=== PATIENT | female | born 1945 | race Caucasian/White ===

== ENCOUNTER 2017-09-06 15:45 | Inpatient (IN) ==
[2017-09-06] MEDS ORDERED: dilTIAZem HCl 100 MG in D5% in Water 50 ML IVC SCH (16:15)
[2017-09-06] MEDS ORDERED: Aspirin 81 MG TAB.CHEW PO ONE (16:18)
--- NOTE | 2017-09-06 16:19 | Emergency Department Note ---
Disposition Clinical Impression: Palpitation Chest pain Qualifiers: Chest pain type: unspecified Qualified Code(s): R07.9 - Chest pain, unspecified Atrial fibrillation Qualifiers: Atrial fibrillation type: paroxysmal Qualified Code(s): I48.0 - Paroxysmal atrial fibrillation Disposition: Admitted As Inpatient Condition: Fair Time of Disposition: 18:11 General Adult HPI - General Chief complaint: ED Chest Pain Stated complaint: Chest Pain Time Seen by Provider: 09/06/17 15:49 Source: patient Limitations: no limitations Nursing Notes Reviewed: Yes Vital Signs Reviewed: Yes - History of Present Illness HPI Narrative: Patient is a 72-year-old female with a past medical history of cardiac stents, atrial fibrillation, and CHF presenting with the complaint of chest pressure that has been going on for 16 hours. Patient describes the pain as going across her entire anterior chest this morning a discomfort than it is a pain. She states the pain has been constant since that time. She states she does not note anything that makes it better or worse. Her associated symptoms include nausea, diaphoresis, and palpitations. She states she does have palpitations occasionally from her atrial fibrillation, however these palpitations feel different than those. She also has associated nausea and diaphoresis. Patient scrubbed the pain is pressure-like, constant, she has no significant makes pain better or worse, and she states it is not pain is more of a discomfort. Pain Scale: 0 - Related Data Home Medications Medication Instructions Recorded Confirmed Carvedilol 07/21/15 07/21/15 Lisinopril 07/21/15 07/21/15 Multaq 07/21/15 07/21/15 Warfarin 07/21/15 07/21/15 Spironolactone 10/13/16 Atorvastatin 05/02/17 Carvedilol 05/02/17 05/02/17 Previous Rx's Medication Instructions Recorded Nitrofurantoin Monohyd/M-Cryst 100 mg PO BID #14 capsule 05/02/17 [Macrobid 100 mg Capsule] Phenazopyridine HCl [Pyridium] 200 mg PO TID #6 tab 05/02/17 Betamethasone Dipropionate 15 gm TP BID 7 Days #1 cream..g. 08/21/17 GuaiFENesin ER [Mucinex] 1,200 mg PO BID #20 tbbp.12hr 08/21/17 Loratadine/Pseudophed (12 HR) 1 each PO BID #20 tab.er.12h 08/21/17 [Claritin D (12HR)] cephALEXin [Keflex] 500 mg PO QID #40 capsule 08/21/17 Allergies Allergy/AdvReac Type Severity Reaction Status Date / Time No Known Allergies Allergy Verified 07/21/15 13:59 Review of Systems: Constitutional: No fever Vision: No blurred vision ENT: No rhinorrhea Respiratory: No cough, no shortness of breath Allergic: No allergies : No blood in urine GI: No blood in stool Hematologic: No bruising Dermatologic: No skin rash Musculoskeletal: No pain in the extremities Neuro: No numbness of the extremities All systems ED: reviewed and negative except as stated. Past Medical History - Past Medical History Medical history: Reports: other Psychiatric history: Reports: no psych history - Social History Smoking Status: Never smoker Smokeless Tobacco Status: No Alcohol use: Reports: none Drug use: Reports: none Physical Exam CONSTITUTIONAL: Alert and oriented X3, well-nourished, well appearing, in no apparent distress HEAD: Normocephalic; atraumatic. EYES: PERRL, no scleral icterus. NOSE: The nose is normal in appearance without rhinorrhea RESP: Normal chest excursion with respiration; breath sounds clear and equal bilaterally; no wheezes, rhonchi, or rales CARD: Tachycardia, without murmurs, rub or gallop ABD: Non-distended; non-tender, soft,without rigidity, rebound or guarding SKIN: Normal for age and race; warm and dry; no apparent lesions. EXT: No lower extremity edema or pain. - General Limitations: no limitations General appearance: alert, in no apparent distress Course Course Narrative: Patient is 72-year-old female with a past medical history of cardiac stents and atrial fibrillation presenting with the complaint of chest pressure has been going on for 14 hours. Upon arrival to the ED she is found to be tachycardic and in atrial fibrillation. Cardiac workup was ordered. Patient was given aspirin. Initial EKG showed atrial fibrillation with a rate in the 150s. - Reevaluation(s) Reevaluation #1: Patient's labs came back patient has a mildly elevated BNP, troponin was negative, the patient did have an elevated creatinine which actually appears to be better than creatinine in the past. Patient's chest x-ray was negative. Patient received Cardizem drip on the emergency department as well as a half liter bolus fluids. Her blood pressure remained stable and her heart rate came down to the 80s to 90s patient remained in atrial fibrillation. Upon lowering of the patient's heart rate the patient states that her chest pressure had improved. Discussed the plan to admit the patient for chest pain to have her further treated and evaluated. Patient agrees with this plan. Time: 18:10 Reevaluation #2: I discussed this patient's case with Dr. Wong and he agrees to accept the patient. Time: 18:18 Vital Signs Temperature 98.1 F 09/06/17 15:54 Pulse Rate 118 09/06/17 15:54 Respiratory Rate 18 09/06/17 15:54 Blood Pressure 115/89 09/06/17 15:54 O2 Sat by Pulse Oximetry 97 09/06/17 15:54 Temperature 98.1 F 09/06/17 15:54 Pulse Rate 85 09/06/17 17:43 Respiratory Rate 16 09/06/17 17:43 Blood Pressure 112/56 09/06/17 17:43 O2 Sat by Pulse Oximetry 96 09/06/17 17:43 Oxygen Delivery Oxygen Delivery Room Air Medical Decision Making - Medical Records Medical records reviewed: Yes I reviewed the patient's medical records. - Lab Data Lab results reviewed: Yes I reviewed the patient's lab results. Result diagrams: 09/06/17 16:12 09/06/17 16:12 Lab Results 09/06/17 09/06/17 09/06/17 Range/Units 16:12 16:12 16:12 WBC 7.6 (4.3-11.1) K/mcL RBC 3.90 (3.82-4.97) M/mcL Hgb 12.5 (11.5-15.4) g/dL Hct 37.5 (35.3-44.9) % MCV 96.2 (83.0-100.0) fL MCH 32.1 (28.0-33.3) pg MCHC 33.3 (31.6-35.5) g/dL RDW 13.1 (11.5-14.5) % Plt Count 272 (140-400) K/mcL MPV 10.3 (9.4-12.4) fL Immature Gran % 0.3 (0-4) % Seg Neutrophils % 64.5 % Lymphocytes % 26.3 % Monocytes % 6.8 % Eosinophils % 1.6 % Basophils % 0.5 % Neutrophils # 4.9 (1.6-8.9) K/mcL Lymphocytes # 2.0 (0.6-4.6) K/mcL Monocytes # 0.5 (0.0-1.3) K/mcL Eosinophils # 0.1 (0.0-0.6) K/mcL Basophils # 0.0 (0.0-0.2) K/mcL PT 33.8 H (9.4-12.1) Seconds INR 3.1 APTT 45.3 H (26.0-36.0) Seconds Sodium (136-145) mEq/L Potassium (3.5-4.5) mEq/L Chloride (98-109) mEq/L Carbon Dioxide (19-29) mEq/L BUN (7-20) mg/dL Creatinine (0.57-1.11) mg/dL Est GFR ( Amer) (> 60) Est GFR (Non-Af Amer) (> 60) BUN/Creatinine Ratio (6-26) Glucose (70-99) mg/dL Calculated Osmolality (280-300) Calcium (8.6-10.8) mg/dL Troponin I (0-0.03) ng/mL B-Natriuretic Peptide 328 H (0-100) pg/mL 09/06/17 09/06/17 Range/Units 16:12 16:12 WBC (4.3-11.1) K/mcL RBC (3.82-4.97) M/mcL Hgb (11.5-15.4) g/dL Hct (35.3-44.9) % MCV (83.0-100.0) fL MCH (28.0-33.3) pg MCHC (31.6-35.5) g/dL RDW (11.5-14.5) % Plt Count (140-400) K/mcL MPV (9.4-12.4) fL Immature Gran % (0-4) % Seg Neutrophils % % Lymphocytes % % Monocytes % % Eosinophils % % Basophils % % Neutrophils # (1.6-8.9) K/mcL Lymphocytes # (0.6-4.6) K/mcL Monocytes # (0.0-1.3) K/mcL Eosinophils # (0.0-0.6) K/mcL Basophils # (0.0-0.2) K/mcL PT (9.4-12.1) Seconds INR APTT (26.0-36.0) Seconds Sodium 138 (136-145) mEq/L Potassium 5.1 H (3.5-4.5) mEq/L Chloride 108 (98-109) mEq/L Carbon Dioxide 17 L (19-29) mEq/L BUN 21 H (7-20) mg/dL Creatinine 1.30 H (0.57-1.11) mg/dL Est GFR ( Amer) 49 L (> 60) Est GFR (Non-Af Amer) 40 L (> 60) BUN/Creatinine Ratio 16 (6-26) Glucose 114 H (70-99) mg/dL Calculated Osmolality 290 (280-300) Calcium 9.2 (8.6-10.8) mg/dL Troponin I 0.01 (0-0.03) ng/mL B-Natriuretic Peptide (0-100) pg/mL - Radiology Data Radiology results reviewed: Yes I reviewed the patient's radiology results. Chest X-Ray 09/06/17 15:59 IMPRESSION: Stable examination. No acute cardiopulmonary abnormality. D/ / Merrick Bain MD / Merrick Bain MD Interpreting Provider: eMrrick Bain MD - EKG Data EKG #1 EKG attestation: Yes I reviewed and interpreted this EKG. EKG results narrative: EKG interpreted by me at 15:51. EKG is atrial fibrillation with RVR at a rate of 1 45 bpm. Also shows left bundle branch block however this is old when compared to her old EKGs. EKG #2 EKG attestation: Yes I reviewed and interpreted this EKG. EKG results narrative: Patient's repeat EKG done at 17:11 shows atrial fibrillation at a rate of 90 bpm. [place] is normal. QRS is 113, QT is 355, QTC is 4 through these are within normal limits. No signs of ST elevation or depression or signs of ischemia. This is improved compared to her last EKG that was done at 15:51. This EKG was done status post Cardizem bolus and drip. Critical Care Time Critical Care Time: Yes Total Critical Care Time: 35 Attestation: Critical care time 35 minutes managing A. fib with RVR. Attestation Statement - Attestation Attestation: Patient was seen with resident physician. I reviewed the history, physical, assessment and plan, and agree with the findings. I also personally evaluated this patient and had [id number] time with this patient. 72-year-old female presents to the emergency Department chief complaint of palpitations and chest pressure. Patient states the palpitations started sometime in the middle the night. She said the palpitations are associated with mild chest pressure that is across her chest anteriorly. Patient is a history of A. fib but says her heart rate is not usually it is fast. Denies nausea vomiting diarrhea or shortness of breath. On exam vital signs patient is tachycardic. Blood pressure stable. ENT is unremarkable. Heart is tachycardic with an irregularly irregular rhythm. Her lungs are clear. Abdomen is soft and nontender. Extremities unremarkable no appreciable swelling in lower extremities. Neurologically intact. ED course patient will be given Cardizem for rate control. We will also do a cardiopulmonary workup. We will plan on admitting the patient to hospitalist service for rate control and evaluation for chest pain. Through the course of the patient's visit her heart rate was better controlled. Her chest discomfort improved with that as well. Labs showed an elevated BNP but a normal troponin. Patient is anticoagulated for her A. fib. Because of the patient's prolonged chest discomfort and difficulty with rate control. We opted to admit patient to hospital for rate control and further workup for the chest pain. We discussed case and the hospitalist agreed to accept the patient for admission. I agree with the resident physician assessment and plan. Critical care time 35 minutes managing A. fib with RVR.
[2017-09-06 16:20] LABS: Basophils % 0.5 %; Eosinophils # 0.1 K/mcL (0.0-0.6); Eosinophils % 1.6 %; Hematocrit 37.5 % (35.3-44.9); Hemoglobin 12.5 g/dL (11.5-15.4); Immature Granulocytes % 0.3 % (0-4); Lymphocytes % 26.3 %; Mean Corpuscular HGB Conc 33.3 g/dL (31.6-35.5); Mean Corpuscular Hemoglobin 32.1 pg (28.0-33.3); Mean Corpuscular Volume 96.2 fL (83.0-100.0); Mean Platelet Volume 10.3 fL (9.4-12.4); Monocytes # 0.5 K/mcL (0.0-1.3); Monocytes % 6.8 %; Neutrophils # 4.9 K/mcL (1.6-8.9); Platelet Count 272 K/mcL (140-400); Red Cell Distribution Width 13.1 % (11.5-14.5); Segmented Neutrophils % 64.5 %
[2017-09-06 16:25] LABS: INR 3.1; Prothrombin Time 33.8 Seconds (9.4-12.1)
[2017-09-06 16:28] LABS: Activated Partial Thrombo Time 45.3 Seconds (26.0-36.0)
[2017-09-06 16:34] LABS: Calcium 9.2 mg/dL (8.6-10.8); Potassium 5.1 mEq/L (3.5-4.5)
[2017-09-06] MEDS ORDERED: 0.9 % Sodium Chloride 500 ML IVC ONE (16:53)
[2017-09-06] MEDS ORDERED: Naloxone 0.4 MG/ML INJ IVP PRN (18:34)
--- NOTE | 2017-09-06 18:42 | Internal Med History&Physical ---
Date of Encounter: 09/06/17 Time of Encounter: 18:39 Assessment and Plan (1) Atrial fibrillation Current visit: Yes Status: Acute rate control with IV cardizem on coumadin, mildly elevated, hold coumadin tonight ,check INR K elevated, hold aldactone Qualifiers: Atrial fibrillation type: paroxysmal Qualified Code(s): I48.0 - Paroxysmal atrial fibrillation (2) Palpitation Current visit: Yes Status: Acute 2/2 symptomatic afib (3) Chest pain Current visit: Yes Status: Acute trend trop, suspect demand from symptomatic AFib Qualifiers: Chest pain type: precordial pain Qualified Code(s): R07.2 - Precordial pain (4) HTN (hypertension), benign Current visit: Yes Status: Acute hold lisinopril while titrating dilt Internal Medicine - H&P: HPI Chief complaint: didn't feel well History of present illness: Ms. Rubio is a 72 year old female with a hx of AFib who presents with recurrent sympatomatic AFib , found to be in RVR. She is established with cardiology Dr Paiz at [facility] where she has been treated for AFib. She has CAD and 10 years ago, had a heart attack s/p 2 stents. She is on chronic coumadin. She developed symptoms early this morning where it has awaken her up from bed at around 3-4a.m. She didn't feel well but was able to return to sleep. She woke up at 6-7 a.m this morning with persistent symptom with description of chest fullness and feeling dizzy and weak. EKG personally reviewed with rate 145, irregularly irregular Past Med Surg Social Fam HX - Past Medical History Medical history: other Psychiatric history: no psych history - Past Surgical History Surgical History: no surgical history (stents) - Social History Smoking Status: Never smoker Smokeless Tobacco Status: No Alcohol use: none Drug use: none - Additional Family History Additional family history: HTN Internal Medicine - H&P: Meds Lisinopril 40 mg PO DAILY 07/21/15 [History] Multaq 400 mg PO BID 07/21/15 [History] Warfarin 2.5 mg PO DAILY 07/21/15 [History] Spironolactone 25 mg PO DAILY 10/13/16 [History] Carvedilol 12.5 mg PO BID 05/02/17 [History] 3 Allergy/AdvReac Type Severity Reaction Status Date / Time No Known Allergies Allergy Verified 07/21/15 13:59 All Systems PM: A 10-system review of systems was performed and is negative for pertinent findings except as documented above in the HPI. Review of systems: ROS 14 point review of systems reviewed as best as possible given presentation. Pertinent positive or negative as per HPI or otherwise reviewed as negative - Constitutional Vitals: Temp Pulse Resp BP Pulse Ox 98.1 F 85 16 112/56 96 09/06/17 15:54 09/06/17 17:43 09/06/17 17:43 09/06/17 17:43 09/06/17 17:43 Exam: General - AAO x 3 Psych - Appropriate affect/speech. No agitation Eyes - CLAUDE. Eye lids intact. No scleral icterus Heart - Irregularly irregular. RRR. S1 and S2 present. No added HS/murmurs appreciated. No elevated JVD appreciated. Lung - Adequate air entry b/l, No crackles/wheezes appreciated GI - Soft, non-tender. No hepatosplenomegaly/ascites. BS+ - No CVA/suprapubic tenderness or palpable bladder distension Skin - Intact. No rash/petechiae/ecchymosis. Warm extremities Internal Med - H&P Results - Labs CBC & Chem 7: 09/06/17 16:12 09/06/17 16:12
[2017-09-06] MEDS ORDERED: *HR* Warfarin 2.5 MG TABLET PO SCH (20:45)
[2017-09-06] MEDS ORDERED: 0.9 % Sodium Chloride 1,000 ML ONE (21:57)
[2017-09-07 01:47] LABS: Basophils % 0.6 %; Eosinophils # 0.1 K/mcL (0.0-0.6); Eosinophils % 1.4 %; Hematocrit 34.6 % (35.3-44.9); Hemoglobin 11.4 g/dL (11.5-15.4); Immature Granulocytes % 0.1 % (0-4); Lymphocytes # 3.1 K/mcL (0.6-4.6); Lymphocytes % 43.1 %; Mean Corpuscular HGB Conc 32.9 g/dL (31.6-35.5); Mean Corpuscular Hemoglobin 31.8 pg (28.0-33.3); Mean Corpuscular Volume 96.4 fL (83.0-100.0); Mean Platelet Volume 10.2 fL (9.4-12.4); Monocytes # 0.4 K/mcL (0.0-1.3); Monocytes % 5.8 %; Neutrophils # 3.5 K/mcL (1.6-8.9); Platelet Count 213 K/mcL (140-400); Red Blood Count 3.59 M/mcL (3.82-4.97)
[2017-09-07 01:59] LABS: BUN/Creatinine Ratio 19 (6-26); Blood Urea Nitrogen 20 mg/dL (7-20); Calcium 8.6 mg/dL (8.6-10.8); Carbon Dioxide 20 mEq/L (19-29); Chloride 112 mEq/L (98-109); Glucose 90 mg/dL (70-99); Magnesium 1.8 mg/dL (1.6-2.6); Osmolality,Calculated 292 (280-300); Potassium 4.9 mEq/L (3.5-4.5); Sodium 140 mEq/L (136-145); eGFR For African Americans > 60 (> 60); eGFR For Non-African Americans 52 (> 60)
[2017-09-07 02:23] LABS: Thyroid Stimulating Hormone 1.333 mcIU/mL (0.350-4.840)
[2017-09-07 08:31] LABS: INR 2.9; Prothrombin Time 31.9 Seconds (9.4-12.1)
[2017-09-07] MEDS ORDERED: SPIRONOLACTONE 25 MG PO SCH (09:00)
[2017-09-07 15:39] VITALS: BP 102/62
--- NOTE | 2017-09-07 16:24 | Discharge Summary ---
Date of Encounter: 09/07/17 Time of Encounter: 16:20 - Discharge Diagnosis (1) Atrial fibrillation Priority: Primary Status: Acute Qualifiers: Atrial fibrillation type: paroxysmal Qualified Code(s): I48.0 - Paroxysmal atrial fibrillation (2) Congestive heart failure Priority: Secondary Status: Chronic Qualifiers: Congestive heart failure type: systolic Congestive heart failure chronicity : chronic Qualified Code(s): I50.22 - Chronic systolic (congestive) heart failure (3) HTN (hypertension), benign Priority: Secondary Status: Chronic - Discharge Medications Prescriptions: Dronedarone [Multaq] 400 mg PO BID #30 tablet Home Medications: Carvedilol 12.5 mg PO BID 09/07/17 [History] Dronedarone [Multaq] 400 mg PO BID #30 tablet 09/07/17 [Rx] Lisinopril [Zestril] 40 mg PO DAILY 09/07/17 [History] Spironolactone [Aldactone] 25 mg PO DAILY 09/07/17 [History] Tamsulosin [Flomax] 0.4 mg PO DAILY 09/07/17 [History] Warfarin [Coumadin] 1.25 mg PO WE #0 09/09/17 [Rx] Warfarin [Coumadin] 2.5 mg PO SUMOTUTHFRSA #0 09/09/17 [Rx] Allergies/Adverse Reactions: 3 Allergy/AdvReac Type Severity Reaction Status Date / Time No Known Allergies Allergy Verified 09/07/17 07:01 Procedures/tests Complete & Pending: Procedures Performed prior 72 hours Category Date Time Status EV echocardiogram Routine Y 09/07/17 09:08 Ordered Date of admission: 09/06/17 18:34 Primary care physician: Gunner Gamino Jr, MD Discharging clinician: Erendira Johnson Anticipated date of discharge: 09/07/17 - Patient Status Disposition: Home, Self-Care Condition: Good Functional capacity at discharge: independent ambulation Overall status at discharge: patient is progressing back to baseline - Discharge Instructions Instructions: Warfarin (By mouth), Atrial Fibrillation (DC), Chronic Hypertension (DC) Follow Up With: Gunner Gamino Jr, MD [Primary Care Provider] - (wEB rEQUEST PLACED WILL CALL WITH APPOINTMENT) Additional Instructions: F/up with PCP in 1-2 weeks F/up with Cardiology at [facility] in 3-4 weeks Follow up at the Anticoagulation clinic [facility] on 09/10/17 at 1:45pm - Diet and Activity Activity: resume usual activities as tolerated Diet: low fat, low cholesterol, low salt diet, other (renal diet, low K, fluid restriction to 2L/day) Hospital course: Ms. Rubio is a 72 year old female with known h/o- a.fib, admitted with palpitations and chest discomfort. SHe was noted to be in atrial fibrillation with rapid ventricular response in the ER and was given IV Cardizem push and started on IV Cardizem drip. She follows with Cardiology at [facility] and is on Coreg and Dronedarone as outpatient. SHe is also on Coumadin for half-way anticoagulation. She is doing well upon my evaluation this morning and has been off IV Cardizem drip with well-controlled heart rate. 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 She has been restarted on her home rate control meds and encouraged to keep her appointments and adhere to meds and she verbalized understanding. - Time Spent with Patient Total time spent providing and/or coordinating discharge services: Greater than 30 minutes (40 min) - Constitutional Vitals: Temp Pulse Resp BP Pulse Ox 98.0 F 72 17 102/62 98 09/07/17 15:38 09/07/17 15:38 09/07/17 15:38 09/07/17 15:38 09/07/17 15:38 General appearance: Present: A&O X 3, answers questions appropriately - Respiratory Respiratory exam: Present: CTAB. Absent: accessory muscle use, rales, rhonchi, wheezes - Cardiovascular Cardiovascular exam: Present: irregular rhythm, +S1, +S2. Absent: diastolic murmur, gallop, rubs, systolic murmur
--- NOTE | 2017-09-07 16:42 | Electrocardiograph Report ---
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
[2017-09-07] MEDS ORDERED: *HR* Warfarin 2 MG TABLET PO ONE (18:00)
[2017-09-07] MEDS ORDERED: Warfarin perPT PO PRN (18:00)
--- NOTE | 2017-09-08 21:44 | Electrocardiograph Report ---
[place] [id number] Test Date: 2017-09-06 Pat Name: Cecilia Rubio Department: 103 Room: 2A12 Gender: Fitness Teacher: : 1945 Requested By: Jace Malik Order Number: [id number] Reading MD: Stephen Clark MD Measurements Intervals [place] Rate: 90 P: [place]: 0 QRS: 0 QRSD: 113 T: 69 QT: 355 QTc: 403 Interpretive Statements ATRIAL FIBRILLATION Poor R wave progression Electronically Signed On 09-08-2017 21:42:39 EST by Stephen Clark MD
== END 2017-09-07 17:19 | disposition home or self-care (01) | DRG 309 ==
LOC: 2ANU 15:45 → EMEROO 15:45 → 2ANU 18:18 → SUATTDRO 18:34
PROVIDERS: ADMIT Hospitalist; ATTEND Internal Medicine

== ENCOUNTER 2018-01-17 13:36 | Observation (INO) ==
[2018-01-17] MEDS ORDERED: 0.9 % Sodium Chloride 1,000 ML IVC ONE (13:40)
[2018-01-17 13:56] LABS: Basophils % 0.4 %; Eosinophils # 0.1 K/mcL (0.0-0.6); Eosinophils % 1.7 %; Hematocrit 40.3 % (35.3-44.9); Hemoglobin 13.1 g/dL (11.5-15.4); Immature Granulocytes % 0.2 % (0-4); Lymphocytes # 1.4 K/mcL (0.6-4.6); Lymphocytes % 25.4 %; Mean Corpuscular HGB Conc 32.5 g/dL (31.6-35.5); Mean Corpuscular Hemoglobin 31.1 pg (28.0-33.3); Mean Corpuscular Volume 95.7 fL (83.0-100.0); Mean Platelet Volume 10.2 fL (9.4-12.4); Monocytes # 0.5 K/mcL (0.0-1.3); Monocytes % 10.1 %; Neutrophils # 3.3 K/mcL (1.6-8.9); Platelet Count 199 K/mcL (140-400); Red Blood Count 4.21 M/mcL (3.82-4.97); Red Cell Distribution Width 13.2 % (11.5-14.5); Segmented Neutrophils % 62.2 %
[2018-01-17 13:59] LABS: INR 1.9; Prothrombin Time 20.5 Seconds (9.4-12.1)
--- NOTE | 2018-01-17 14:01 | Emergency Department Note ---
Disposition Clinical Impression: Near syncope, JUAN CARLOS (acute kidney injury) Hypotension Qualifiers: Hypotension type: unspecified hypotension type Qualified Code(s): I95.9 - Hypotension, unspecified Disposition: Admitted As Inpatient Condition: Fair Referrals: Priscilla Dumont CNP [Primary Care Provider] - Forms: ED Satisfaction Letter Time of Disposition: 16:14 General Adult HPI - General Chief complaint: ED Syncope Stated complaint: Weakness Time Seen by Provider: 01/17/18 13:37 Source: patient Mode of arrival: ambulatory Limitations: no limitations Nursing Notes Reviewed: Yes Vital Signs Reviewed: Yes - History of Present Illness HPI Narrative: 73-year-old female history of A. fib present for evaluation of near-syncope. Patient presented to the emergency department for her . The course of her 's evaluation a patient almost passed out. Patient states that she has not been feeling well over the past 2 days. States that she began feeling nauseous that started yesterday. Patient also been having some lightheadedness. Patient states he been feeling dizzy. Patient denies any chest pain. Patient denies any shortness of breath. Patient has been having upper respiratory rhinorrhea and did take an antihistamine. Patient denies any abdominal pain. Patient does know she has had intermittent nonbloody diarrhea. Patient denies any dysuria. Pain Scale: 0 - Related Data Home Medications Medication Instructions Recorded Confirmed Carvedilol 12.5 mg PO BID 09/07/17 01/17/18 Lisinopril [Zestril] 40 mg PO DAILY 09/07/17 01/17/18 Spironolactone [Aldactone] 25 mg PO DAILY 09/07/17 01/17/18 DiphenhydraMINE [Benadryl] 25 mg PO BID PRN 01/17/18 01/17/18 Loperamide [Imodium] 2 mg PO Q4HR PRN 01/17/18 01/17/18 Warfarin [Coumadin] 1.25 mg PO WETHSA 01/17/18 01/17/18 Previous Rx's Medication Instructions Recorded Dronedarone [Multaq] 400 mg PO BID #30 tablet 09/07/17 Warfarin [Coumadin] 2.5 mg PO SUMOTUTHFRSA #0 09/09/17 Allergies Allergy/AdvReac Type Severity Reaction Status Date / Time No Known Allergies Allergy Verified 01/17/18 16:25 All systems ED: reviewed and negative except as stated. Constitutional: Denies: fever Cardiovascular: Denies: chest pain Respiratory: Denies: cough, dyspnea, sputum production Gastrointestinal: Reports: nausea. Denies: abdominal pain, vomiting Neurological: Denies: headache Past Medical History - Past Medical History Source: patient Medical history: Reports: atrial fibrillation, coronary artery disease, hyperlipidemia, hypertension, myocardial infarction Surgical history: Reports: no surgical history (stents) Psychiatric history: Reports: no psych history - Social History Smoking Status: Never smoker Smokeless Tobacco Status: No Alcohol use: Reports: none Drug use: Reports: none Physical Exam - General Limitations: no limitations, language barrier General appearance: alert, in no apparent distress - Head Head exam: atraumatic, normocephalic, normal inspection - Eye Eye exam: Present: normal appearance, PERRL, EOMI, nystagmus (Fatiguible horizontal beating nystagmus). Absent: miosis, mydriasis - ENT ENT exam: normal exam, mucous membranes moist - Neck Neck exam: Present: normal inspection - Chest Chest inspection: Present: normal inspection, symmetric chest wall rise - Respiratory Respiratory exam: Present: normal lung sounds bilaterally. Absent: respiratory distress - Cardiovascular Cardiovascular exam: Present: regular rate, normal rhythm. Absent: systolic murmur - Abdominal Exam Abdominal exam: Present: soft, Non-Tender - Extremities Exam Extremities exam: Present: normal inspection. Absent: pedal edema - Expanded Lower Extremity Exam Neurovascular/Tendon exam: Present: normal capillary refill - Neurological Exam Neurological exam: Present: alert, oriented X3 - Skin Skin exam: Present: warm, dry, intact, normal color Course Course Narrative: Patient will get symptomatic treatment. Cardiopulmonary evaluation with EKG, troponin and BNP and a chest x-ray. Disposition pending. - Reevaluation(s) Reevaluation #1: Patient initially was hypotensive with systolic pressures in the 70s. Patient has responded IV fluids. Time: 14:47 Reevaluation #2: Patient seen and examined. Patient states she is feeling better. Time: 15:18 Reevaluation #3: Patient's updated on plan of care. Time: 16:49 Vital Signs Temperature 98.8 F 01/17/18 13:37 Pulse Rate 93 01/17/18 13:37 Respiratory Rate 18 03/18/18 13:37 Blood Pressure 102/63 03/18/18 13:37 O2 Sat by Pulse Oximetry 97 01/17/18 13:37 Temperature 98.8 F 01/17/18 13:37 Pulse Rate 84 01/17/18 16:20 Respiratory Rate 22 01/17/18 16:20 Blood Pressure 131/67 01/17/18 16:20 O2 Sat by Pulse Oximetry 95 01/17/18 16:20 Oxygen Delivery Oxygen Delivery Room Air Medical Decision Making - [facility] Narrative Medical decision making narrative: 73-year-old female presented for evaluation of near syncope. Patient presented earlier today, a by her who was admitted for respiratory distress. Patient states she has not been feeling well over the past couple days. Patients felt nauseous and dizzy. Patient's also felt lightheaded. Patient's initial triage vitals showed hypotension which responded to IV fluids. Patient also been having some diarrhea. Patient's labs showed a negative troponin but evidence of acute kidney injury. Patient ABIs likely related to prerenal and volume status. Patient was treated with IV fluids as well as started on a maintenance. Patient was also given meclizine. Patient had a head CT which was unremarkable. Low suspicion that the patient has any type of central nervous system etiology of her symptoms. Patient felt comfortable during the emergency department stay. Hospitalist requested a carboxyhemoglobin level given the family with similar symptoms. - Lab Data Lab results reviewed: Yes I reviewed the patient's lab results. Result diagrams: 01/17/18 13:47 01/17/18 13:40 Lab Results 01/17/18 01/17/18 01/17/18 Range/Units 13:40 13:44 13:47 WBC 5.4 (4.3-11.1) K/mcL RBC 4.21 (3.82-4.97) M/mcL Hgb 13.1 (11.5-15.4) g/dL Hct 40.3 (35.3-44.9) % MCV 95.7 (83.0-100.0) fL MCH 31.1 (28.0-33.3) pg MCHC 32.5 (31.6-35.5) g/dL RDW 13.2 (11.5-14.5) % Plt Count 199 (140-400) K/mcL MPV 10.2 (9.4-12.4) fL Immature Gran % 0.2 (0-4) % Seg Neutrophils % 62.2 % Lymphocytes % 25.4 % Monocytes % 10.1 % Eosinophils % 1.7 % Basophils % 0.4 % Neutrophils # 3.3 (1.6-8.9) K/mcL Lymphocytes # 1.4 (0.6-4.6) K/mcL Monocytes # 0.5 (0.0-1.3) K/mcL Eosinophils # 0.1 (0.0-0.6) K/mcL Basophils # 0.0 (0.0-0.2) K/mcL PT (9.4-12.1) Seconds INR Sodium 133 L (136-145) mEq/L Potassium 4.9 (3.5-5.1) mEq/L Chloride 101 (98-107) mEq/L Carbon Dioxide 26 (23-29) mEq/L BUN 24 H (8-23) mg/dL Creatinine 1.51 H (0.60-1.20) mg/dL Est GFR ( Amer) 41 L (> 60) Est GFR (Non-Af Amer) 34 L (> 60) BUN/Creatinine Ratio 16 (6-26) Glucose 124 H (70-105) mg/dL POC Glucose (58-89) Calculated Osmolality 281 (280-300) Lactic Acid (0.5-2.2) mmol/L Calcium 9.4 (8.6-10.3) mg/dL Phosphorus 3.8 (2.7-4.5) mg/dL Magnesium 1.8 (1.6-2.6) mg/dL Troponin I < 0.03 (< 0.04) ng/mL Urine Color (Yellow) Urine Clarity (Clear) Urine pH (5.0-8.0) pH Units Ur Specific [place] (1.010-1.025) Urine Protein (Neg-Trace) mg/dL Urine Glucose (UA) (Normal) mg/dL Urine Ketones (Negative) mg/dL Urine Blood (Negative) Urine Nitrite (Negative) Urine Bilirubin (Negative) Urine Urobilinogen (Normal) mg/dL Ur Leukocyte Esterase (Negative) Blood Type O POSITIVE Antibody Screen NEGATIVE 01/17/18 01/17/18 01/17/18 Range/Units 13:47 13:49 14:30 WBC (4.3-11.1) K/mcL RBC (3.82-4.97) M/mcL Hgb (11.5-15.4) g/dL Hct (35.3-44.9) % MCV (83.0-100.0) fL MCH (28.0-33.3) pg MCHC (31.6-35.5) g/dL RDW (11.5-14.5) % Plt Count (140-400) K/mcL MPV (9.4-12.4) fL Immature Gran % (0-4) % Seg Neutrophils % % Lymphocytes % % Monocytes % % Eosinophils % % Basophils % % Neutrophils # (1.6-8.9) K/mcL Lymphocytes # (0.6-4.6) K/mcL Monocytes # (0.0-1.3) K/mcL Eosinophils # (0.0-0.6) K/mcL Basophils # (0.0-0.2) K/mcL PT 20.5 H (9.4-12.1) Seconds INR 1.9 Sodium (136-145) mEq/L Potassium (3.5-5.1) mEq/L Chloride (98-107) mEq/L Carbon Dioxide (23-29) mEq/L BUN (8-23) mg/dL Creatinine (0.60-1.20) mg/dL Est GFR ( Amer) (> 60) Est GFR (Non-Af Amer) (> 60) BUN/Creatinine Ratio (6-26) Glucose (70-105) mg/dL POC Glucose 116 H (58-89) Calculated Osmolality (280-300) Lactic Acid 1.3 (0.5-2.2) mmol/L Calcium (8.6-10.3) mg/dL Phosphorus (2.7-4.5) mg/dL Magnesium (1.6-2.6) mg/dL Troponin I (< 0.04) ng/mL Urine Color (Yellow) Urine Clarity (Clear) Urine pH (5.0-8.0) pH Units Ur Specific [place] (1.010-1.025) Urine Protein (Neg-Trace) mg/dL Urine Glucose (UA) (Normal) mg/dL Urine Ketones (Negative) mg/dL Urine Blood (Negative) Urine Nitrite (Negative) Urine Bilirubin (Negative) Urine Urobilinogen (Normal) mg/dL Ur Leukocyte Esterase (Negative) Blood Type Antibody Screen 01/17/18 Range/Units 15:41 WBC (4.3-11.1) K/mcL RBC (3.82-4.97) M/mcL Hgb (11.5-15.4) g/dL Hct (35.3-44.9) % MCV (83.0-100.0) fL MCH (28.0-33.3) pg MCHC (31.6-35.5) g/dL RDW (11.5-14.5) % Plt Count (140-400) K/mcL MPV (9.4-12.4) fL Immature Gran % (0-4) % Seg Neutrophils % % Lymphocytes % % Monocytes % % Eosinophils % % Basophils % % Neutrophils # (1.6-8.9) K/mcL Lymphocytes # (0.6-4.6) K/mcL Monocytes # (0.0-1.3) K/mcL Eosinophils # (0.0-0.6) K/mcL Basophils # (0.0-0.2) K/mcL PT (9.4-12.1) Seconds INR Sodium (136-145) mEq/L Potassium (3.5-5.1) mEq/L Chloride (98-107) mEq/L Carbon Dioxide (23-29) mEq/L BUN (8-23) mg/dL Creatinine (0.60-1.20) mg/dL Est GFR ( Amer) (> 60) Est GFR (Non-Af Amer) (> 60) BUN/Creatinine Ratio (6-26) Glucose (70-105) mg/dL POC Glucose (58-89) Calculated Osmolality (280-300) Lactic Acid (0.5-2.2) mmol/L Calcium (8.6-10.3) mg/dL Phosphorus (2.7-4.5) mg/dL Magnesium (1.6-2.6) mg/dL Troponin I (< 0.04) ng/mL Urine Color Yellow (Yellow) Urine Clarity Clear (Clear) Urine pH 5.5 (5.0-8.0) pH Units Ur Specific [place] 1.022 (1.010-1.025) Urine Protein Negative (Neg-Trace) mg/dL Urine Glucose (UA) Normal (Normal) mg/dL Urine Ketones Negative (Negative) mg/dL Urine Blood Negative (Negative) Urine Nitrite Negative (Negative) Urine Bilirubin Negative (Negative) Urine Urobilinogen Normal (Normal) mg/dL Ur Leukocyte Esterase Negative (Negative) Blood Type Antibody Screen - Radiology Data Radiology results reviewed: Yes I reviewed the patient's radiology results. Chest X-Ray 01/17/18 13:40 IMPRESSION: 1. Stable scarring/atelectasis in the lung bases. 2. No new parenchymal lung infiltrate. D/ / 01/17/2018 14:17:06 Herberth Guerra MD / bijan Interpreting Provider: Herberth Guerra MD Chest X-Ray 01/17/18 13:40 IMPRESSION: 1. Stable scarring/atelectasis in the lung bases. 2. No new parenchymal lung infiltrate. D/ / 01/17/2018 14:17:06 Herberth Guerra MD / bijan Interpreting Provider: Herberth Guerra MD Head CT 01/17/18 15:18 IMPRESSION: No acute intracranial abnormality. D/ / Yonatan Lopez MD / Yonatan Lopez MD Interpreting Provider: Yonatan Lopez MD - EKG Data EKG #1 EKG attestation: Yes I reviewed and interpreted this EKG. EKG shows normal: sinus rhythm Rate: normal Rhythm: NSR [place]/QRS: normal, LBBB Ectopy: PVC Interpretation: no acute changes, nonspecific ST-T wave changes S.B.A.R. - S.B.A.R. Situation: Demographics Background: Presenting Complaint Assessment: Vital Signs, Course and respsone to treatment, Patient/Family Expectation Recommendation: Barrier(s) to disposition, Recommendation based on pending studies, treatments, or consults S.B.A.R. Report Given to: Dr. Xavi Mcdermott Repor Time: 16:13 Attestation Statement - Attestation Attestation: Patient was seen with resident physician. I reviewed the history, physical, assessment and plan, and agree with the findings. I also personally evaluated this patient and had [id number] time with this patient. 73-year-old female presents to the emergency Department chief complaint near syncope. Patient was here with her who is being evaluated as well, after having blood drawn she was found to be lightheaded and she said she was feeling dizzy. Patient was checked into the emergency department on additional history she said she has not been feeling well for the last couple of days. She has had decreased sleep she has not been eating or drinking well and she has noticed increased dizziness and generalized fatigue. She also notes that she takes some medications which on occasion and causes her blood pressure to go low. She denies other symptoms. Review of systems was completed as above for remainder is reviewed and negative. Physical exam vital signs hypotensive mildly remainder unremarkable. ENT is unremarkable. Heart normal. Lungs normal. Abdomen soft nontender. Extremities unremarkable. Neurologically no focal deficits. Skin no rashes. Psych normal. We will do workup for near syncope minus a head CT scan. Seems more blood pressure related and also more of a vasovagal kind of event. Labs showed mild kidney injury. Her blood pressure improved somewhat with IV hydration. CT scans of the head did not reveal any acute abnormalities. Chest x-ray did not reveal pneumonia. Although the workup was essentially negative, there is some concern with this near syncopal episode in addition to her hypotension. We discussed case and the hospitalist agreed to admit the patient for additional medical testing and management. I agree with the resident physician assessment and plan.
[2018-01-17 14:23] LABS: BUN/Creatinine Ratio 16 (6-26); Blood Urea Nitrogen 24 mg/dL (8-23); Calcium 9.4 mg/dL (8.6-10.3); Carbon Dioxide 26 mEq/L (23-29); Chloride 101 mEq/L (98-107); Glucose 124 mg/dL (70-105); Magnesium 1.8 mg/dL (1.6-2.6); Osmolality,Calculated 281 (280-300); Phosphorous 3.8 mg/dL (2.7-4.5); Potassium 4.9 mEq/L (3.5-5.1); Sodium 133 mEq/L (136-145); eGFR For African Americans 41 (> 60); eGFR For Non-African Americans 34 (> 60)
[2018-01-17 14:24] LABS: Troponin I < 0.03 ng/mL (< 0.04)
[2018-01-17] MEDS ORDERED: 0.9 % Sodium Chloride 1,000 ML ONE (14:29)
[2018-01-17 15:58] LABS: Bilirubin,Urine Negative (Negative); Blood,Urine Negative (Negative); Clarity,Urine Clear (Clear); Color,Urine Yellow (Yellow); Glucose,Urine (UA) Normal (Normal); Ketones,Urine Negative (Negative); Leukocyte Esterase,Urine Negative (Negative); Nitrite,Urine Negative (Negative); PH,Urine 5.5 pH Units (5.0-8.0); Protein,Urine Negative (Neg-Trace); Specific Gravity,Urine 1.022 (1.010-1.025); Urobilinogen,Urine Normal (Normal)
[2018-01-17] MEDS ORDERED: Naloxone 0.4 MG/ML INJ IVP PRN (18:40)
[2018-01-17] MEDS ORDERED: Acetaminophen 325 MG TABLET PO PRN (18:53)
[2018-01-17] MEDS ORDERED: Ondansetron 4 MG/2 ML VIAL IVP PRN (18:56)
--- NOTE | 2018-01-17 18:56 | Internal Med History&Physical ---
<Chirag Rodriguez - Last Filed: 01/17/18 19:35> Date of Encounter: 01/17/18 Time of Encounter: 17:30 Assessment and Plan (1) Near syncope Current visit: Yes Status: Acute Acute near-syncopal episode. Pt. reports feeling unwell since Thursday with sore throat, cough, weakness, fever, nausea, and diarrhea. Pt. is afebrile and WBC WNL. Latest VS: 98.6F temp, 74 HR, 18 RR, 131/60 BP, and 97% SPO2 on room air. Pt. also reports being under stress d/t her being hospitalized here currently. Pt. is not currently sepsis criteria but will be monitored closely. Respiratory infection panel ordered. Falls/safety precautions. Supplemental O2 w /titration and SpO2 monitoring. Continuous cardiac telemetry. Pt. discussed w/ Dr. Hurley who agrees w/plan of care. Pt. is moderate risk for further morbidity based on current sx, hx of CAD and atrial fibrillation, JUAN CARLOS superimposed on CKD, and risk factors. Observation. (2) JUAN CARLOS (acute kidney injury) Current visit: Yes Status: Acute JUAN CARLOS most likely d/t recent diarrhea and fluid loss. Pt. reports weakness since Thursday. IV fluid bolus followed by 125 mL/HR in ED. Monitor I&O. Monitor pt. and f/u labs. Will avoid nephrotoxins. Hold lisinopril and Aldactone for now. (3) CAD (coronary artery disease) Current visit: Yes Status: Chronic Hx of chronic CAD w/previous GA in 2005 w/stents x2. Continue Coumadin w/ pharmacy dosing, Carvedilol, and Multaq. Hold lisinopril and Aldactone for now d /t JUAN CARLOS. Qualifiers: Coronary Disease-Associated Artery/Lesion type: [place] artery [place] vs. transplanted heart: [place] heart Associated angina: angina presence unspecified Qualified Code(s): I25.10 - Atherosclerotic heart disease of [place] coronary artery without angina pectoris (4) HLD (hyperlipidemia) Current visit: Yes Status: Chronic Hx of chronic HLD. Lipid panel in a.m. labs. Pt. does not currently take statin d/t allergy (leg cramping/pain). Discussed w/pt. regarding talking to her PCP for alternatives based on lipid panel results. Qualifiers: Hyperlipidemia type: pure hypercholesterolemia Qualified Code(s): E78.00 - Pure hypercholesterolemia, unspecified; E78.0 - Pure hypercholesterolemia (5) HTN (hypertension) Current visit: Yes Status: Chronic Hx of chronic HTN. Monitor pt. and VS. Continue pts. Carvedilol and hold lisinopril and Aldactone for now. Qualifiers: Hypertension type: essential hypertension Qualified Code(s): I10 - Essential (primary) hypertension (6) Atrial fibrillation Current visit: Yes Status: Chronic Hx of chronic paroxysmal atrial fibrillation. Continuous cardiac telemetry. Continue pts. Coumadin w/pharmacy dosing and Multaq. Qualifiers: Atrial fibrillation type: paroxysmal Qualified Code(s): I48.0 - Paroxysmal atrial fibrillation (7) DVT prophylaxis Current visit: Yes Status: Acute Continue patient's Coumadin with pharmacy dosing for DVT prophylaxis. Monitor patient for signs of bleeding. Internal Medicine - H&P: HPI Chief complaint: Pre-Syncope/Weakness Admitted From: Emergency Dept Plans for Post Hospital Care: Home History of present illness: Ms. Rubio is a 73 year old female w/PMH of atrial fibrillation, CAD, HLD, HTN, and previous myocardial infarction in 2005 with stent placement 2 presents from the ED with chief complaint of generalized weakness and feelings of presyncope that began Thursday and worsened through today. Patient also reports sore throat, dizziness, nausea, cough, fever, and diarrhea but denies use of recent abx. Patient reports no alleviating or aggravating factors. Patient denies shortness of breath, productive cough, changes in vision, headache, chest pain, palpitations, vomiting, abdominal pain, constipation, numbness, tingling, or unusual bleeding. Past Med Surg Social Fam HX - Past Medical History Source: patient, old records reviewed Medical history: atrial fibrillation, coronary artery disease, hyperlipidemia, hypertension, myocardial infarction (2005 w/stents x2) Psychiatric history: no psych history - Past Surgical History Surgical History: angioplasty/stent (x2) - Social History Smoking Status: Never smoker Smokeless Tobacco Status: No Alcohol use: none Drug use: none Current living situation: Home, With Family Activity Level: Independent ambulation Recent Out of Country Travel Within the Last 8 Weeks: No Exposure or Possible Exposure to Illness During Travel: No - Family History Mother Race: Family Member Ethnicity: Non- Living Status: Age at : 81 Cause of : Pancreatic cancer Hx Family Cardiac Disorders: Yes Hx Family Cancer: Yes (Pancreatic) Father Race: Family Member Ethnicity: Non- Living Status: Age at : 82 Cause of : Stomach cancer Hx Family Cardiac Disorders: Yes (GA, Triple bypass) Hx Family Cancer: Yes (Stomach) Internal Medicine - H&P: Meds Carvedilol 12.5 mg PO BID 09/07/17 [History] Dronedarone [Multaq] 400 mg PO BID #30 tablet 09/07/17 [Rx] Lisinopril [Zestril] 40 mg PO DAILY 09/07/17 [History] Spironolactone [Aldactone] 25 mg PO DAILY 09/07/17 [History] Warfarin [Coumadin] 2.5 mg PO SUMOTUTHFRSA #0 09/09/17 [Rx] DiphenhydraMINE [Benadryl] 25 mg PO BID PRN 01/17/18 [History] Loperamide [Imodium] 2 mg PO Q4HR PRN 01/17/18 [History] Warfarin [Coumadin] 1.25 mg PO WETHSA 01/17/18 [History] 3 Allergy/AdvReac Type Severity Reaction Status Date / Time No Known Allergies Allergy Verified 01/17/18 16:25 All Systems PM: A 10-system review of systems was performed and is negative for pertinent findings except as documented above in the HPI. - Constitutional Constitutional: as per HPI, fatigue, weakness, no chills, no fever(s), no night sweats - EENT Eyes: no change in vision, no discharge, no pain, no photophobia Ears: no ear discharge, no ear pain, no tinnitus Nose, mouth and throat: no dysphagia, no nasal discharge, no neck pain, no sore throat - Breasts Breasts: as per HPI - Cardiovascular Cardiovascular ROS IM: no chest pain, no diaphoresis, no dyspnea, no lightheadedness, no palpitations, no syncope - Respiratory Respiratory: as per HPI, cough (Non-productive), no dyspnea, no wheezing, no excessive phlegm production - Gastrointestinal Gastrointestinal: as per HPI, diarrhea, nausea, no abdominal pain, no hematemesis, no hematochezia, no melena, no vomiting - Genitourinary Genitourinary: no change in urinary stream, no dysuria, no flank pain, no hematuria Menstruation: as per HPI - Musculoskeletal Musculoskeletal ROS IM: no numbness, no tingling - Integumentary Integumentary IM: no rash, no unusual bruising - Neurological Neurological ROS: as per HPI, dizziness, weakness, no confusion, no convulsions , no focal weakness, no numbness, no tingling, no tremor(s) - Psychiatric Psychiatric: as per HPI - Endocrine Endocrine IM: as per HPI - Hematologic/Lymphatic Hematologic/Lymphatic: no easy bruising - Allergic/Immunologic Allergic/Immunologic: as per HPI - Constitutional Vitals: Temp Pulse Resp BP Pulse Ox 98.8 F 79 16 135/68 96 01/17/18 13:37 01/17/18 18:09 01/17/18 18:09 01/17/18 18:09 01/17/18 18:09 General appearance: Present: cooperative, A&O X 3, pleasant, no acute distress, obese, answers questions appropriately - Head Head exam: Present: atraumatic, normocephalic - Eye Eye exam: Present: PERRL, conjuntiva pink, sclera anicteric Pupils: Present: PERRL - ENT ENT exam: Present: normal exam - Neck Neck exam general surgery: Present: supple, trachea midline. Absent: lymphadenopathy - Respiratory Respiratory exam: Present: CTAB. Absent: accessory muscle use, rales, rhonchi, wheezes - Cardiovascular Cardiovascular exam: Present: irregular rhythm (Atrial fibrillation). Absent: diastolic murmur, gallop, rubs, systolic murmur - GI/Abdominal GI/Abdominal exam: Present: normal bowel sounds, soft, no peritoneal signs. Absent: distended, tenderness - Rectal Rectal exam: Present: deferred - Additional comments: exam deferred. - Extremities Exam Extremities exam: Present: warm, radial pulses palpable and symmetrical. Absent : calf tenderness, cyanotic, pedal edema - Back Exam Back exam: Present: normal inspection - Neurological Exam Neurological exam: Present: CN II-XII intact, oriented X3, no focal deficits. Absent: pronater drift, facial droop, speech deficit - Psychiatric Psychiatric exam: Present: normal affect, normal mood - Skin Skin exam: Present: dry, intact Internal Med - H&P Results - Labs CBC & Chem 7: 01/17/18 13:47 01/17/18 13:40 - EKG Data EKG shows normal: sinus rhythm - EKG Data Prior EKG available for review: no EKG comments: 01/17/18 19:02 EKG dated 01/17/18 shows sinus rhythm with occasional ventricular premature complexes, moderate intraventricular conduction delay, and nonspecific T-wave abnormality. - Diagnostic Studies Chest x-ray Additional comments: Impressions Chest X-Ray 01/17/18 13:40 IMPRESSION: 1. Stable scarring/atelectasis in the lung bases. 2. No new parenchymal lung infiltrate. D/ / 01/17/2018 14:17:06 Herberth Guerra MD / bijan Interpreting Provider: Herberth Guerra MD CT scan - head Additional comments: Impressions Head CT 01/17/18 15:18 IMPRESSION: No acute intracranial abnormality. D/ / Yonatan Lopez MD / Yonatan Lopez MD Interpreting Provider: Yonatan Lopez MD <Jessica Hurley - Last Filed: 01/18/18 11:07> Date of Encounter: 01/18/18 Internal Medicine - H&P: HPI History of present illness: Ms. Rubio is a 73 year old female All Systems PM: A 10-system review of systems was performed and is negative for pertinent findings except as documented above in the HPI. - Constitutional Vitals: Temp Pulse Resp BP Pulse Ox 100 F H 79 15 135/65 95 01/18/18 06:55 01/18/18 06:55 01/18/18 06:55 01/18/18 06:55 01/18/18 06:55 Internal Med - H&P Results - Labs CBC & Chem 7: 01/18/18 03:32 01/18/18 03:32 Labs: Short CBC 01/18/18 Range/Units 03:32 WBC 5.9 (4.3-11.1) K/mcL Hgb 11.5 D (11.5-15.4) g/dL Hct 34.9 L (35.3-44.9) % Plt Count 158 (140-400) K/mcL Neutrophils # 3.7 (1.6-8.9) K/mcL BMP 01/18/18 03:32 Sodium 138 Potassium 4.7 Chloride 106 Carbon Dioxide 21 L BUN 19 Creatinine 1.06 Glucose 91 Calcium 8.6 Liver Function 01/18/18 Range/Units 03:32 Total Bilirubin 0.4 (0.3-1.0) mg/dL AST 17 (13-39) Units/L ALT 15 (7-52) Units/L Alkaline Phosphatase 66 (34-104) Units/L Albumin 4.1 (3.5-5.7) g/dL Attestation: My signature below is to certify that this patient is under my care and that I, or nurse practitioner, or a physician's sales assistant displays working with me, has a face-to -face encounter with this patient.
[2018-01-17] MEDS: 0.9 % Sodium Chloride 1,000 ML IVC SCH (21:40)
[2018-01-18] MEDS ORDERED: *HR* Warfarin 2.5 MG TABLET PO ONE ×2 (01:15→18:00)
[2018-01-18 04:10] LABS: Basophils % 0.3 %; Eosinophils # 0.1 K/mcL (0.0-0.6); Eosinophils % 1.4 %; Hematocrit 34.9 % (35.3-44.9); Immature Granulocytes % 0.3 % (0-4); Lymphocytes # 1.5 K/mcL (0.6-4.6); Lymphocytes % 26.2 %; Mean Corpuscular Hemoglobin 30.9 pg (28.0-33.3); Mean Corpuscular Volume 93.8 fL (83.0-100.0); Mean Platelet Volume 10.8 fL (9.4-12.4); Monocytes # 0.5 K/mcL (0.0-1.3); Neutrophils # 3.7 K/mcL (1.6-8.9); Platelet Count 158 K/mcL (140-400); Red Blood Count 3.72 M/mcL (3.82-4.97); Red Cell Distribution Width 13.2 % (11.5-14.5); Segmented Neutrophils % 63.8 %
[2018-01-18 04:13] LABS: Hemoglobin 11.5 g/dL (11.5-15.4)
[2018-01-18 04:20] LABS: INR 1.7; Prothrombin Time 18.7 Seconds (9.4-12.1)
[2018-01-18 04:34] LABS: Alanine Aminotransferase 15 Units/L (7-52); Albumin 4.1 g/dL (3.5-5.7); Albumin/Globulin Ratio 1.6 (1.1-2.2); Alkaline Phosphatase 66 Units/L (34-104); Aspartate Amino Transferase 17 Units/L (13-39); BUN/Creatinine Ratio 18 (6-26); Bilirubin,Total 0.4 mg/dL (0.3-1.0); Blood Urea Nitrogen 19 mg/dL (8-23); Calcium 8.6 mg/dL (8.6-10.3); Carbon Dioxide 21 mEq/L (23-29); Chloride 106 mEq/L (98-107); Chol/HDL Ratio 5.8 (0-4.9); Cholesterol 186 mg/dL (< 200); Globulin 2.5 g/dL (2.4-3.5); Glucose 91 mg/dL (70-105); HDL Cholesterol 32 mg/dL (40-59); LDL Cholesterol,Calculated 133 mg/dL (0-99); Osmolality,Calculated 288 (280-300); Potassium 4.7 mEq/L (3.5-5.1); Sodium 138 mEq/L (136-145); Total Protein 6.6 g/dL (6.4-8.9); Triglycerides 104 mg/dL (< 150); eGFR For African Americans > 60 (> 60); eGFR For Non-African Americans 51 (> 60)
[2018-01-18] MEDS: 0.9 % Sodium Chloride 1,000 ML IVC SCH (07:26)
[2018-01-18 07:27] LABS: Adenovirus Not Detected (Not Detect); Bordetella Pertussis Not Detected (Not Detect); Chlamydophila pneumoniae Not Detected (Not Detect); Coronavirus 229E Not Detected (Not Detect); Coronavirus HKU1 Not Detected (Not Detect); Coronavirus NL63 Not Detected (Not Detect); Coronavirus OC43 Not Detected (Not Detect); Human Metapneumovirus Not Detected (Not Detect); Human Rhinovirus/Enterovirus Not Detected (Not Detect); Influenza A Subtype 2009 H1 Not Detected (Not Detect); Influenza A Untypeable Not Detected (Not Detect); Influenza B ***DETECTED*** (Not Detect); Mycoplasma pneumoniae Not Detected (Not Detect); Parainfluenza Virus 1 Not Detected (Not Detect); Parainfluenza Virus 2 Not Detected (Not Detect); Parainfluenza Virus 3 Not Detected (Not Detect); Parainfluenza Virus 4 Not Detected (Not Detect); Respiratory Syncytial Virus Not Detected (Not Detect)
[2018-01-18 10:52] LABS: Estimated Average Glucose 128 mg/dl; Hemoglobin A1C 6.1 %
[2018-01-18 16:11] VITALS: BP 103/50
--- NOTE | 2018-01-18 16:24 | Discharge Summary ---
- NOTES TO OUTPATIENT PROVIDER Notes to Outpatient Provider: Follow up with PCP in 2-3 days after discharge. Address elevated LDL at that time (patient cannot tolerate some statins). Follow up in coumadin clinic this week as directed (PT/INR checked). Orders not resulted at time of discharge: Pending orders 01/19/18 04:00 Complete Blood Count [HEME] AM 0400 Comprehensive Metabolic Panel AM 0400 PT/INR [Prothrombin Time INR] [COAG] AM 0400 01/20/18 04:00 Complete Blood Count [HEME] AM 0400 Comprehensive Metabolic Panel AM 0400 PT/INR [Prothrombin Time INR] [COAG] AM 0400 01/21/18 04:00 Complete Blood Count [HEME] AM 0400 Comprehensive Metabolic Panel AM 0400 PT/INR [Prothrombin Time INR] [COAG] AM 0400 01/22/18 04:00 PT/INR [Prothrombin Time INR] [COAG] AM 0400 01/23/18 04:00 PT/INR [Prothrombin Time INR] [COAG] AM 0400 01/24/18 04:00 PT/INR [Prothrombin Time INR] [COAG] AM 0400 01/25/18 04:00 PT/INR [Prothrombin Time INR] [COAG] AM 0400 Date of Encounter: 01/18/18 Time of Encounter: 16:22 - Discharge Diagnosis (1) Near syncope Priority: Primary Status: Resolved (2) Influenza B Priority: Secondary Status: Acute (3) JUAN CARLOS (acute kidney injury) Priority: Secondary Status: Resolved (4) Atrial fibrillation Priority: Secondary Status: Chronic Qualifiers: Atrial fibrillation type: paroxysmal Qualified Code(s): I48.0 - Paroxysmal atrial fibrillation (5) CAD (coronary artery disease) Priority: Secondary Status: Chronic Qualifiers: Coronary Disease-Associated Artery/Lesion type: [place] artery [place] vs. transplanted heart: [place] heart Associated angina: angina presence unspecified Qualified Code(s): I25.10 - Atherosclerotic heart disease of [place] coronary artery without angina pectoris (6) HLD (hyperlipidemia) Priority: Secondary Status: Chronic Qualifiers: Hyperlipidemia type: pure hypercholesterolemia Qualified Code(s): E78.00 - Pure hypercholesterolemia, unspecified; E78.0 - Pure hypercholesterolemia (7) HTN (hypertension) Priority: Secondary Status: Chronic Qualifiers: Hypertension type: essential hypertension Qualified Code(s): I10 - Essential (primary) hypertension (8) DVT prophylaxis Priority: Secondary Status: Acute Hospital course: Ms. Rubio is a 73 year old female admitted for near-syncope. She was admitted for observation to general medical floor with telemetry. She was hydrated gently for JUAN CARLOS, which resolved the next day. She was found to be influenza B positive. Tamiflu treatment was deferred due to the fact that it was greater than 4 days since onset of symptoms. She has no syncopal episodes since admission. Weakness was greatly improved the next day. On day of discharge, labwork was unremarkable except elevated LDL of 133. She is unable to take particular statins. Will let PCP address hyperlipidemia at follow up appointment after discharge. Patient will follow up with PCP in 2-3 days after discharge, and will follow up in coumadin clinic on 01/21/18 as already scheduled for PT/INR check. Patient has met maximum benefit of this hospitalization and will be discharged home in stable condition. Discharge discussed with: patient, nurse, case management, other (Pharmacist) - Time Spent with Patient Total time spent providing and/or coordinating discharge services: Less than 30 minutes - Discharge Medications Home Medications: Carvedilol 12.5 mg PO BID 09/07/17 [History] Dronedarone [Multaq] 400 mg PO BID #30 tablet 09/07/17 [Rx] Lisinopril [Zestril] 40 mg PO DAILY 09/07/17 [History] Spironolactone [Aldactone] 25 mg PO DAILY 09/07/17 [History] Warfarin [Coumadin] 2.5 mg PO SUMOTUTHFRSA #0 09/09/17 [Rx] DiphenhydraMINE [Benadryl] 25 mg PO BID PRN 01/17/18 [History] Loperamide [Imodium] 2 mg PO Q4HR PRN 01/17/18 [History] Warfarin [Coumadin] 1.25 mg PO WETHSA 01/17/18 [History] Allergies/Adverse Reactions: 3 Allergy/AdvReac Type Severity Reaction Status Date / Time No Known Allergies Allergy Verified 01/17/18 16:25 Date of admission: 01/17/18 17:35 Primary care physician: Priscilla Dumont CNP Consults: 01/17/18 18:47 Consult to Nursing Attendant [CONS] Routine Reason for SW Consult: Please assess patient for possible home needs for post -discharge planning. 01/18/18 05:01 Consult to Nutrition [CONS] Routine Comment: Consulting Provider: NUTRITION Reason for Dietary Consult: MST Score Discharging clinician: Onur Stephens Anticipated date of discharge: 01/18/18 - Constitutional Vitals: Temp Pulse Resp BP Pulse Ox 99.1 F 70 18 103/50 96 01/18/18 16:08 01/18/18 16:08 01/18/18 16:08 01/18/18 16:08 01/18/18 11:26 General appearance: Present: cooperative, A&O X 3, pleasant, no acute distress, answers questions appropriately - Respiratory Respiratory exam: Present: CTAB. Absent: accessory muscle use, rales, rhonchi, wheezes Additional comments: Normal WOB - Cardiovascular Cardiovascular exam: Present: RRR, +S1, +S2. Absent: diastolic murmur, gallop, rubs, systolic murmur Additional comments: No BLE edema - GI/Abdominal GI/Abdominal exam: Present: normal bowel sounds, soft. Absent: distended, hepatomegaly, mass, splenomegaly, tenderness - Psychiatric Psychiatric exam: Present: normal affect, normal mood. Absent: anxious, depressed - Skin Skin exam: Present: dry, intact, warm. Absent: cyanosis, rash - Patient Status Disposition: Home, Self-Care Condition: Good Functional capacity at discharge: independent ambulation Overall status at discharge: patient is progressing back to baseline - Discharge Instructions Follow Up With: Priscilla Dumont CNP [Primary Care Provider] - Additional Instructions: Follow up with PCP in 2-3 days after discharge. Address elevated LDL at that time (patient cannot tolerate some statins). Follow up in coumadin clinic this week as directed (PT/INR checked). - Diet and Activity Activity: resume usual activities as tolerated Diet: low fat, low cholesterol, low salt diet, other (Cardiac)
[2018-01-18] MEDS ORDERED: Warfarin perPT PO PRN (18:00)
--- NOTE | 2018-01-19 08:04 | Electrocardiograph Report ---
[facility] Test Date: 2018-01-17 Pat Name: Cecilia Rubio Department: [id number] Room: 2NE29 Gender: F Sales Utility Representative: : 1945 Requested By: Long Medina Order Number: [id number] Reading MD: Fabrizio Matute MD Measurements Intervals [place] Rate: 73 P: 58 SD: 129 QRS: -4 QRSD: 109 T: 61 QT: 362 QTc: 387 Interpretive Statements SINUS RHYTHM WITH OCCASIONAL VENTRICULAR PREMATURE COMPLEXES MODERATE INTRAVENTRICULAR CONDUCTION DELAY NONSPECIFIC T-WAVE ABNORMALITY Electronically Signed On 01-18-2018 18:51:57 EDT by Fabrizio Matute MD
== END 2018-01-18 18:25 | disposition home or self-care (01) ==
LOC: 3BNU 13:36 → EMEROO 13:36 → 2NENU 17:43
PROVIDERS: ADMIT Student in an Organized Health Care Education/Training Program; ATTEND Registered Nurse

== ENCOUNTER 2021-03-20 09:17 | Inpatient (IN) ==
[2021-03-20 09:50] LABS: Basophils % 0.5 %; Eosinophils % 0.2 %; Hematocrit 42.8 % (35.3-44.9); Immature Granulocytes % 0.3 % (0-4); Lymphocytes # 1.9 K/mcL (0.6-4.6); Lymphocytes % 28.4 %; Mean Corpuscular HGB Conc 32.7 g/dL (31.6-35.5); Mean Corpuscular Volume 94.9 fL (83.0-100.0); Mean Platelet Volume 10.8 fL (9.4-12.4); Monocytes # 0.5 K/mcL (0.0-1.3); Monocytes % 7.1 %; Neutrophils # 4.2 K/mcL (1.6-8.9); Platelet Count 210 K/mcL (140-400); Red Blood Count 4.51 M/mcL (3.82-4.97); Segmented Neutrophils % 63.5 %; White Blood Count 6.7 K/mcL (4.3-11.1)
[2021-03-20 10:11] LABS: BUN/Creatinine Ratio 15 (6-26); Blood Urea Nitrogen 14 mg/dL (8-23); Calcium 9.7 mg/dL (8.6-10.3); Carbon Dioxide 23 mEq/L (23-29); Chloride 104 mEq/L (98-107); Glucose 116 mg/dL (70-105); Osmolality,Calculated 287 (280-300); Potassium 3.6 mEq/L (3.5-5.1); Sodium 138 mEq/L (136-145); Troponin I < 0.03 ng/mL (< 0.04); eGFR For African Americans > 60 (> 60); eGFR For Non-African Americans 56 (> 60)
[2021-03-20 10:25] LABS: Thyroid Stimulating Hormone 0.686 mcIU/mL (0.340-5.600)
[2021-03-20 10:49] LABS: INR 1.6; Prothrombin Time 18.4 Seconds (9.4-12.1)
[2021-03-20] MEDS ORDERED: Aspirin 81 MG TAB.CHEW PO ONE (10:49)
[2021-03-20 10:52] LABS: Activated Partial Thrombo Time 30.8 Seconds (26.0-36.0)
[2021-03-20] MEDS ORDERED: Naloxone 0.4 MG/ML INJ IVP PRN (12:38)
[2021-03-20] MEDS ORDERED: Acetaminophen 325 MG TABLET PO PRN (12:39)
[2021-03-20] MEDS ORDERED: Ondansetron ODT 4 MG TAB.RAPDIS SL PRN (12:39)
[2021-03-20 13:27] LABS: Hematocrit 39.8 % (35.3-44.9); Hemoglobin 13.2 g/dL (11.5-15.4); Mean Corpuscular HGB Conc 33.2 g/dL (31.6-35.5); Mean Corpuscular Hemoglobin 31.5 pg (28.0-33.3); Mean Platelet Volume 11.1 fL (9.4-12.4); Platelet Count 192 K/mcL (140-400); Red Blood Count 4.19 M/mcL (3.82-4.97); Red Cell Distribution Width 12.9 % (11.5-14.5); White Blood Count 5.6 K/mcL (4.3-11.1)
[2021-03-20] MEDS ORDERED: *HR* Heparin 5,000 UNIT/ML VIAL IVP PRN ×2 (14:01)
[2021-03-20] MEDS ORDERED: *HR* Heparin 5,000 UNIT/ML VIAL IVP ONE (14:01)
[2021-03-20] MEDS: Heparin 25,000UNIT/250ML 1/2NS 25,000 UNIT/250 ML IV.SOLN IVC SCH (15:23)
[2021-03-20] MEDS: Isosorbide MONOnitrate (24 HR) 30 MG TAB.ER.24H PO SCH (15:24)
[2021-03-20] MEDS: carvediloL 6.25 MG TABLET PO SCH (15:24)
[2021-03-21 04:44] LABS: BUN/Creatinine Ratio 16 (6-26); Blood Urea Nitrogen 14 mg/dL (8-23); Carbon Dioxide 25 mEq/L (23-29); Chloride 106 mEq/L (98-107); Glucose 105 mg/dL (70-105); Magnesium 1.6 mg/dL (1.6-2.6); Osmolality,Calculated 289 (280-300); Potassium 3.9 mEq/L (3.5-5.1); Sodium 139 mEq/L (136-145); eGFR For African Americans > 60 (> 60); eGFR For Non-African Americans > 60 (> 60)
[2021-03-21 09:05] LABS: INR 1.6; Prothrombin Time 17.8 Seconds (9.4-12.1)
[2021-03-21] MEDS ORDERED: ALPRAZolam 0.25 MG TABLET PO PRN (09:22)
[2021-03-21] MEDS: carvediloL 6.25 MG TABLET PO SCH ×2 (10:13→16:37)
[2021-03-21] MEDS: Spironolactone 25 MG TABLET PO SCH (10:13)
[2021-03-21] MEDS: Aspirin Enteric Coated 81 MG Tablet PO SCH (10:13)
[2021-03-21] MEDS: Isosorbide MONOnitrate (24 HR) 30 MG TAB.ER.24H PO SCH (10:13)
[2021-03-21] MEDS: lisinopriL 20 MG TABLET PO SCH (10:13)
[2021-03-21] MEDS ORDERED: ISOVUE-370 200 ML INFUS..BTL ONE (13:02)
[2021-03-21] MEDS ORDERED: Heparin 1,000 UNITS/500 mL 500 ML ONE (13:02)
[2021-03-21] MEDS ORDERED: *HR* Heparin 10,000 UNIT/10 ML VIAL ONE (13:02)
[2021-03-21] MEDS ORDERED: Nitroglycerin 1,000 MCG/5 ML VIAL IV ONE (13:02)
[2021-03-21] MEDS ORDERED: 0.9 % Sodium Chloride 2,000 ML ONE (13:02)
[2021-03-21] MEDS ORDERED: *HR* Midazolam HCl 2 MG/2 ML VIAL ONE (13:09)
[2021-03-21] MEDS ORDERED: *HR* FentaNYL (PF) 100 MCG/2 ML VIAL ONE (13:09)
[2021-03-21] MEDS: Heparin 25,000UNIT/250ML 1/2NS 25,000 UNIT/250 ML IV.SOLN IVC SCH (14:54)
[2021-03-22 09:00] LABS: Basophils % 0.5 %; Eosinophils % 0.5 %; Hematocrit 41.4 % (35.3-44.9); Hemoglobin 13.3 g/dL (11.5-15.4); Immature Granulocytes % 0.2 % (0-4); Lymphocytes # 1.7 K/mcL (0.6-4.6); Lymphocytes % 28.7 %; Mean Corpuscular HGB Conc 32.1 g/dL (31.6-35.5); Mean Corpuscular Hemoglobin 30.6 pg (28.0-33.3); Mean Corpuscular Volume 95.4 fL (83.0-100.0); Mean Platelet Volume 11.1 fL (9.4-12.4); Monocytes # 0.4 K/mcL (0.0-1.3); Monocytes % 6.3 %; Neutrophils # 3.7 K/mcL (1.6-8.9); Platelet Count 189 K/mcL (140-400); Red Blood Count 4.34 M/mcL (3.82-4.97); Red Cell Distribution Width 12.9 % (11.5-14.5); Segmented Neutrophils % 63.8 %; White Blood Count 5.9 K/mcL (4.3-11.1)
[2021-03-22 09:23] LABS: BUN/Creatinine Ratio 13 (6-26); Blood Urea Nitrogen 12 mg/dL (8-23); Calcium 9.3 mg/dL (8.6-10.3); Carbon Dioxide 24 mEq/L (23-29); Chloride 106 mEq/L (98-107); Glucose 105 mg/dL (70-105); Magnesium 1.6 mg/dL (1.6-2.6); Osmolality,Calculated 286 (280-300); Phosphorous 2.9 mg/dL (2.7-4.5); Potassium 4.1 mEq/L (3.5-5.1); Sodium 138 mEq/L (136-145); eGFR For African Americans > 60 (> 60); eGFR For Non-African Americans 59 (> 60)
[2021-03-22] MEDS: Isosorbide MONOnitrate (24 HR) 30 MG TAB.ER.24H PO SCH (09:28)
[2021-03-22] MEDS: Aspirin Enteric Coated 81 MG Tablet PO SCH (09:28)
[2021-03-22] MEDS: carvediloL 6.25 MG TABLET PO SCH (09:28)
[2021-03-22] MEDS: Spironolactone 25 MG TABLET PO SCH (09:29)
[2021-03-22] MEDS: lisinopriL 20 MG TABLET PO SCH (09:29)
[2021-03-22 10:17] VITALS: BP 112/62
[2021-03-22 14:03] LABS: INR 1.4; Prothrombin Time 15.8 Seconds (9.4-12.1)
[2021-03-22] MEDS ORDERED: Warfarin perPT PO PRN (18:00)
[2021-03-22] MEDS ORDERED: *HR* Warfarin 2.5 MG TABLET PO ONE (18:00)
[2021-03-22] MEDS ORDERED: Ranolazine 500 MG TAB.ER.12H PO SCH (21:00)
== END 2021-03-22 15:30 | disposition home or self-care (01) | DRG 287 ==
LOC: EMEROOARM 09:17 → 2ANU 09:17
PROVIDERS: ADMIT Internal Medicine; ATTEND Internal Medicine